=== PATIENT | female | born 1960 | race Caucasian/White ===

== ENCOUNTER 2018-08-19 02:32 | Observation (INO) ==
[2018-08-19] MEDS ORDERED: DILTIAZEM 25 MG/5 ML VIAL IV ONE (02:41)
[2018-08-19] MEDS ORDERED: LACTATED RINGERS 1,000 ML IV ONE ×2 (02:44→04:25)
[2018-08-19] MEDS ORDERED: DILTIAZEM 125 MG in DEXTROSE 5% IN WATER 100 ML IV SCH (02:45)
[2018-08-19 03:47] LABS: Basophils # (Auto) 0.1 K/mcL (0.0-0.3); Basophils % (Auto) 0.8 % (0.0-2.0); Eosinophils # (Auto) 0.2 K/mcL (0.0-0.7); Granulocytes % (Auto) 58.5 % (38.0-78.0); Hematocrit 41.7 % (36.0-48.0); Hemoglobin 13.9 g/dL (12.0-15.0); Lymphocytes # (Auto) 1.7 K/mcL (1.5-4.8); Lymphocytes % (Auto) 27.6 % (15.5-49.0); Mean Cell Volume 88.5 fL (80.0-100.0); Mean Corpuscular HGB Conc 33.4 g/dL (31.0-36.0); Mean Platelet Volume 10.1 fL (7.4-10.4); Monocytes # (Auto) 0.6 K/mcL (0.1-0.9); Monocytes % (Auto) 10.1 % (1.0-12.0); Platelet Count 251 K/mcL (140-440); RBC 4.71 M/mcL (4.00-5.20); Red Cell Distribution Width 13.4 % (11.5-14.5); WBC 6.3 K/mcL (4.5-11.0)
[2018-08-19 04:04] LABS: ALT/SGPT 19 U/l (0-40); AST/SGOT 17 U/l (0-37); Albumin 4.3 gm/dL (3.2-5.2); Albumin/Globulin Ratio 1.5 (1.0-2.3); Alkaline Phosphatase 70 U/L (39-117); Bilirubin,Total 0.2 mg/dL (0.0-1.0); Blood Urea Nitrogen 21 mg/dl (6-20); Calcium 9.6 mg/dl (8.6-10.4); Carbon Dioxide 24 mmol/L (22-30); Chloride 108 mmol/L (96-108); Globulin 2.8 gm/dL (2.2-3.7); Glomerular Filtration Rate 96; Glucose 104 mg/dL (70-105); Potassium 3.8 mmol/L (3.3-5.1); Sodium 146 mmol/L (133-145)
--- NOTE | 2018-08-19 07:57 | Emergency Department Note ---
Arrhythmia/Palpitations HPI - General Chief Complaint: Arrhythmia/Palpitations Stated Complaint: increase in heart rate Time Seen by Provider: 08/19/18 07:47 Source: patient Mode of arrival: ambulatory Limitations: no limitations - History of Present Illness HPI Narrative: This patient noticed during the night that her heart rate was rapid. She has had a history of atrial fibrillation in the past and did have a pig valve replacement at one time. She is not ordinarily in atrial fib. Denies chest pain or shortness of breath. - Related Data Allergies Allergy/AdvReac Type Severity Reaction Status Date / Time No Known Allergies Allergy Verified 08/19/18 02:36 Review of Systems All systems ED: reviewed and negative except as stated. Past Medical History - Past Medical History Medical history: Reports: atrial fibrillation, valvular heart disease - Social History smoking status: Never smoker Physical Exam Limitations: no limitations General appearance: alert Head: atraumatic Eye: Present: normal appearance ENT: normal exam Neck: Present: normal inspection Chest: Present: normal inspection Respiratory: Present: normal lung sounds bilaterally Cardiovascular: Present: tachycardia, irregular rhythm, normal heart sounds Abdominal: Present: soft. Absent: distention, tenderness Neurological: Present: alert Psychiatric: Present: normal affect Skin: Present: warm, dry Course Vital Signs Temperature 97.5 F 08/19/18 02:33 Pulse Rate 154 H 08/19/18 02:33 Respiratory Rate 20 08/19/18 02:33 Blood Pressure 106/96 08/19/18 02:33 Pulse Oximetry (%) 96 08/19/18 02:33 Temperature 97.5 F 08/19/18 02:33 Pulse Rate 65 08/19/18 06:50 Respiratory Rate 30 H 08/19/18 06:50 Blood Pressure 114/74 08/19/18 06:46 Pulse Oximetry (%) 99 08/19/18 06:50 Arrhythmia/Palpitations - [facility] Narrative Medical decision making narrative: Lab work was unremarkable. Initial heart rate was in the 140s. He was titrated with diltiazem both bolus and drip and finally got her heart rate down into the 80s to 90s range. I discussed this case with Dr. Sal and the patient will be admitted to telemetry. - Lab Data Lab results reviewed: Yes I reviewed the patient's lab results. Result diagrams: 08/19/18 02:44 08/19/18 02:44 Lab Results 08/19/18 08/19/18 08/19/18 Range/Units 02:44 02:44 02:44 WBC 6.3 (4.5-11.0) K/mcL RBC 4.71 (4.00-5.20) M/mcL Hgb 13.9 (12.0-15.0) g/dL Hct 41.7 (36.0-48.0) % MCV 88.5 (80.0-100.0) fL MCH 29.6 (26.0-34.0) pg MCHC 33.4 (31.0-36.0) g/dL RDW 13.4 (11.5-14.5) % Plt Count 251 (140-440) K/mcL MPV 10.1 (7.4-10.4) fL Gran % 58.5 (38.0-78.0) % Lymph % (Auto) 27.6 (15.5-49.0) % Liberty % (Auto) 10.1 (1.0-12.0) % Eos % (Auto) 3.0 (0.0-7.0) % Baso % (Auto) 0.8 (0.0-2.0) % Gran # 3.7 (1.8-8.0) K/mcL Lymph # (Auto) 1.7 (1.5-4.8) K/mcL Liberty # (Auto) 0.6 (0.1-0.9) K/mcL Eos # (Auto) 0.2 (0.0-0.7) K/mcL Baso # (Auto) 0.1 (0.0-0.3) K/mcL Sodium 146 H (133-145) mmol/L Potassium 3.8 (3.3-5.1) mmol/L Chloride 108 (96-108) mmol/L Carbon Dioxide 24 (22-30) mmol/L Anion Gap 14.0 (8-16) BUN 21 H (6-20) mg/dl Creatinine 0.7 (0.6-1.1) mg/dl GFR Calculation 96 Glucose 104 (70-105) mg/dL Calcium 9.6 (8.6-10.4) mg/dl Total Bilirubin 0.2 (0.0-1.0) mg/dL AST 17 (0-37) U/l ALT 19 (0-40) U/l Alkaline Phosphatase 70 (39-117) U/L Troponin T < 0.01 (0-0.03) ng/ml Total Protein 7.1 (5.9-8.4) gm/dL Albumin 4.3 (3.2-5.2) gm/dL Globulin 2.8 (2.2-3.7) gm/dL Albumin/Globulin Ratio 1.5 (1.0-2.3) Disposition Pt seen by DIRECT SALES REPRESENTATIVE/PA only: No Clinical Impression: Atrial fibrillation Disposition: Xfer As Outpt/Obs ([facility]) Condition: Good Referrals: Carmen De Luna MD [Primary Care Provider] - Time of Disposition: 08:32
--- NOTE | 2018-08-19 08:50 | XRay Report ---
CLINICAL INFORMATION: afib COMPARISON: 02/20/2010. FINDINGS: Sternotomy changes noted. The heart size, mediastinum and pulmonary vessels are unremarkable. The lungs are clear. There are no effusions. The bones and soft tissues are within normal limits. IMPRESSION: Normal chest. Interpreted and Authenticated by: Javid Banuelos 08/19/18
[2018-08-19] MEDS ORDERED: ONDANSETRON 4 MG/2 ML VIAL IV PRN (09:47)
[2018-08-19] MEDS ORDERED: NALOXONE HCL 0.4 MG/ML VIAL IV PRN (09:47)
[2018-08-19] MEDS ORDERED: ACETAMINOPHEN 325 MG TABLET PO PRN (09:47)
--- NOTE | 2018-08-19 09:48 | Internal Med History&Physical ---
Medical - H&P: HPI Patient information: Note initiated : 08/19/18 at 9:45 am Service Date, if different from initiated Date: [] Patient: Floresita Li a 58 y/o F admitted on for Increase In Heart Rate. Chief Complaint: [] History of present illness: Ms. Li is a 58 year old F with history of bicuspid aortic valve, status post replacement with a porcine valve in 2009 presents to the emergency room today for evaluation of palpitations since approximately 1:45 AM today. She tried to walk this off for nearly an hour and the symptoms persisted she therefore came to the emergency room for further evaluation. The patient notes that she woke up early in the morning and noticed that her heart was racing, she denies any shortness of breath chest pain dizziness sweating fever nausea vomiting or any other acute complaint. The patient does not have history of atrial fibrillation, however in the postop. After her valve replacement she did have an episode of atrial fibrillation with RVR so she was aware of what was happening. The patient was prescribed metoprolol at the time of discharge after her valve replacement surgery. The patient stopped taking this medication as her heart rate was doing well. The patient denies any history of diabetes heart attack heart failure stroke or transient ischemic attack. In the emergency room the patient labs were unremarkable, troponin neg, tsh 1.06, mg 1.9 Pt was given cardizem bolus, and place on cardizem drip and is being admitted to the hospital for further management. All systems: reviewed and no additional remarkable complaints except as stated (as per HPI rest neg) Medical - H&P: PMH Medical history: bicuspid aortic vavle, s/p porcine valve coarction of aorta congenital Hypothyroidism Surgical history: aortic valve sx, 2010 knee sx Pertinent family history: mothers side grad parents from cardiac issues mother has cardiac stents Father hld, htn Medical - H&P: Meds Home Medications Medication Instructions Recorded Confirmed Type Levothyroxine [Synthroid] 150 mcg PO DAILY 08/19/18 08/19/18 History Allergies Allergy/AdvReac Type Severity Reaction Status Date / Time No Known Allergies Allergy Verified 08/19/18 02:36 Medical - H&P: Exam - Constitutional Vitals: Temp Pulse Resp BP Pulse Ox 97.5 F 91 H 18 119/78 96 08/19/18 09:29 08/19/18 09:29 08/19/18 09:35 08/19/18 09:29 08/19/18 09:29 Exam: GENERAL: The patient is a well-developed, well-nourished in no apparent distress. Is alert and oriented x3. VITAL SIGNS: Reviewed and as noted elsewhere. HEENT: Head is normocephalic and atraumatic. Extraocular muscles are intact. Pupils are equal, round, and reactive to light. Nares appeared normal. Mouth appears any without lesions. Mucous membranes are moist. NECK: Normal to inspection, Supple, No lymphadenopathy or thyromegaly. LUNGS: Air entry equal on both sides, no wheezing, crackles or rhonchi noted. No accessory muscles of respiration HEART: Rate tachycardic, irregular rhythm, S1 and S2 heard, no Gallop, S3 or Rub Noted, systolic mumrur, aortic region 4/6 ABDOMEN: Soft, nontender, and nondistended. Positive bowel sounds. No hepatosplenomegaly was noted. EXTREMITIES: No cyanosis, clubbing, rash, lesions or edema. NEUROLOGIC: Cranial nerves II through XII are grossly intact. Motor and Sensory System Grossly Intact PSYCHIATRIC: Normal affect, Normal Mood. Appropriate Behavior. SKIN: No ulceration or wounds noted, No jaundice, No rash noted. Medical - H&P: Reslt - Labs CBC & Chem 7: 08/19/18 02:44 08/19/18 02:44 Labs: Short CBC 08/19/18 Range/Units 02:44 WBC 6.3 (4.5-11.0) K/mcL Hgb 13.9 (12.0-15.0) g/dL Hct 41.7 (36.0-48.0) % Plt Count 251 (140-440) K/mcL BMP 08/19/18 02:44 Sodium 146 H Potassium 3.8 Chloride 108 Carbon Dioxide 24 BUN 21 H Creatinine 0.7 Glucose 104 Calcium 9.6 Cardiac Enzymes 08/19/18 Range/Units 02:44 Troponin T < 0.01 (0-0.03) ng/ml Liver Function 08/19/18 Range/Units 02:44 Total Bilirubin 0.2 (0.0-1.0) mg/dL AST 17 (0-37) U/l ALT 19 (0-40) U/l Alkaline Phosphatase 70 (39-117) U/L Albumin 4.3 (3.2-5.2) gm/dL Medical - H&P: A/P - Narrative A/P Narrative: A/P Atrial fibrillation with RVR -IV cardizem drip to continue -last echo was 2 yrs ago, repeat Echo -start on po metoprolol and wean off the drip Hypothyroidism -tsh wnl -continue home dose of levothyroxine DVT hep sq full code
[2018-08-19] MEDS: 0.9 % SODIUM CHLORIDE 250 ML IV SCH (10:00)
[2018-08-19] MEDS: METOPROLOL SUCCINATE 50 MG TAB.XL.24H PO SCH (10:09)
[2018-08-19] MEDS: DILTIAZEM 125 MG in DEXTROSE 5% IN WATER 100 ML IV SCH (15:44)
[2018-08-19] MEDS: 0.9 % SODIUM CHLORIDE 10 ML SYRINGE IV SCH ×2 (15:44→20:29)
[2018-08-19] MEDS: METOPROLOL TARTRATE 5 MG/5 ML VIAL IV PRN ×2 (16:21→20:29)
[2018-08-19] MEDS: HEPARIN 5,000 UNIT/ML VIAL SQ SCH (20:29)
[2018-08-20] MEDS: 0.9 % SODIUM CHLORIDE 250 ML IV SCH (01:47)
[2018-08-20] MEDS: DILTIAZEM 125 MG in DEXTROSE 5% IN WATER 100 ML IV SCH (03:30)
[2018-08-20] MEDS: 0.9 % SODIUM CHLORIDE 10 ML SYRINGE IV SCH (05:38)
[2018-08-20] MEDS ORDERED: DIGOXIN 500 MCG/2 ML AMPUL IV ONE (06:59)
[2018-08-20 08:16] LABS: ALT/SGPT 15 U/l (0-40); AST/SGOT 15 U/l (0-37); Albumin 4.1 gm/dL (3.2-5.2); Albumin/Globulin Ratio 1.5 (1.0-2.3); Alkaline Phosphatase 59 U/L (39-117); Bilirubin,Direct < 0.2 mg/dL (0.0-0.3); Bilirubin,Total 0.4 mg/dL (0.0-1.0); Blood Urea Nitrogen 10 mg/dl (6-20); Calcium 9.5 mg/dl (8.6-10.4); Carbon Dioxide 24 mmol/L (22-30); Chloride 105 mmol/L (96-108); Globulin 2.8 gm/dL (2.2-3.7); Glomerular Filtration Rate 96; Glucose 113 mg/dL (70-105); Lactate Dehydrogenase 198 U/L (94-250); Magnesium 1.9 mg/dL (1.6-2.5); Phosphorous 3.2 mg/dL (2.7-4.5); Potassium 4.1 mmol/L (3.3-5.1); Sodium 139 mmol/L (133-145); Triglycerides 122 mg/dl (<150); Uric Acid 3.3 mg/dL (2.5-8.0)
[2018-08-20] MEDS ORDERED: LEVOTHYROXINE 150 MCG TABLET PO SCH (08:19)
[2018-08-20] MEDS: METOPROLOL SUCCINATE 50 MG TAB.XL.24H PO SCH (08:29)
[2018-08-20] MEDS: HEPARIN 5,000 UNIT/ML VIAL SQ SCH (09:59)
--- NOTE | 2018-08-20 11:11 | Discharge Summary ---
Medical - DS: Prov Patient information: Note initiated : 08/20/18 at 11:08 am Service Date, if different from initiated Date: [] Patient: Floresita Li 58 y/o F admitted on 08/19/18 for Increase In Heart Rate. Chief Complaint: [] Date of admission: 08/19/18 09:48 Discharge date: 08/20/18 Primary care physician: Carmen De Luna Consults: 08/19/18 08:27 Consult to Physician [CONS] Stat Comment: Consulting Provider: Mary Anne Sal Reason For Exam: Physician to Consult Discharging clinician: Mary Anne Sal Medical - DS: Meds - Discharge Medications Prescriptions: Metoprolol Succinate [Toprol Xl] 50 mg PO DAILY #30 tab.xl.24h Active and Home Medications: Home Medications Levothyroxine [Synthroid] 150 mcg PO DAILY 08/19/18 [History Confirmed 08/19/18 Last Taken 08/18/18] Medical - DS: Hosp Hospital course: Ms. Li is a 58 year old F with history of bicuspid aortic valve, status post replacement with a porcine valve in 2009 presents to the emergency room today for evaluation of palpitations since approximately 1:45 AM today. She tried to walk this off for nearly an hour and the symptoms persisted she therefore came to the emergency room for further evaluation. The patient notes that she woke up early in the morning and noticed that her heart was racing, she denies any shortness of breath chest pain dizziness sweating fever nausea vomiting or any other acute complaint. The patient does not have history of atrial fibrillation, however in the postop. After her valve replacement she did have an episode of atrial fibrillation with RVR so she was aware of what was happening. The patient was prescribed metoprolol at the time of discharge after her valve replacement surgery. The patient stopped taking this medication as her heart rate was doing well. The patient denies any history of diabetes heart attack heart failure stroke or transient ischemic attack. In the emergency room the patient labs were unremarkable, troponin neg, tsh 1.06, mg 1.9 Pt was given cardizem bolus, and place on cardizem drip and is being admitted to the hospital for further management. The patient was monitored overnight, the patient was in atrial flutter, and intermittently was on Aflutter/afib with RVR She got one dose of digoxin 500mcg in the morning, and she spontaneously converted back to sinus rhythm. The patient has remained in sinus rhythm and feels good, Echo done shows normal lv function, mild lvh, aortic valve peak gradient 30mmhg, mean gradient 15mmhg Patient advised to take ASA 81 with food, Major risks benefits of the medication discussed, all questions answered. including risk for bleeding and jany She will be discharged home on po metoprolol and advised to follow up with her tv technician for further evaluation. Discharge diagnosis: atrial flutter with rvr - Time Spent with Patient Total time spent providing and/or coordinating discharge services: Greater than 30 minutes Medical - DS: Exam - Constitutional Vitals: Vital Signs Temp Resp BP Pulse Ox 08/20/18 08:02 104/67 08/20/18 07:16 97.6 F 18 101/72 97 08/20/18 00:01 97.9 F 16 95/72 95 08/19/18 22:01 98/70 08/19/18 21:01 103/78 08/19/18 20:57 95/79 08/19/18 20:01 98.9 F 16 109/73 98 08/19/18 19:02 92/75 08/19/18 18:06 82/69 08/19/18 17:01 104/74 08/19/18 16:43 98.4 F 18 96/81 98 08/19/18 16:01 103/69 08/19/18 15:49 97 08/19/18 15:02 95 08/19/18 14:01 106/81 96 08/19/18 13:16 100/77 96 08/19/18 13:03 100/77 97 08/19/18 12:32 91/58 98 08/19/18 12:02 98.2 F 18 106/68 95 08/19/18 11:38 110/75 95 Intake and Output 08/19/18 08/20/18 08/20/18 21:59 05:59 13:59 Intake Total 620 486 240 Output Total 1075 450 150 Balance -455 36 90 Intake: IV 250 Sodium Chloride 0.9% 250 ml @ 250 20 mls/hr IV .[id number] [facility] Rx#: [id number] Oral 620 236 240 Output: Void Amount 1075 450 150 # of times incontinent of urine 0 Other: Meal Dinner Peanutbutter sandwich Breakfast Percent of Meal Consumed 100% 100% 100% Feeding Ability Independent Urine Appearance Clear Clear Clear Urine Color Pale Bright Yellow Bright Yellow Urine Odor Normal Normal # Voids 0 Weight 211 lb 3.2 oz Additional comments: Constitutional; Afebrile, cooperative, alert, not in distress. Eyes- No icterus, , No periorbital swelling Ears- Ext ear normal, hearing normal to conversation. Neck- Midline trachea, supple Respiratory system: Air Entry equal on both sides, No crackles or wheezing, no rhonchi. CVS- Rate rhythm regular, S1,S2 heard, no gallop, no rub. Abdomen- Soft nontender abdomen, no organomegaly, no tenderness, no guarding or rigidity, CHROMOSOMAL DISORDERS COUNSELOR- AOOx3, moving all extremities, no gross focal deficit noted. Medical - DS: Data Labs on day of discharge: Labs from last 24 hours 08/20/18 07:13 Sodium 139 Potassium 4.1 Chloride 105 Carbon Dioxide 24 Anion Gap 10.0 BUN 10 Creatinine 0.7 GFR Calculation 96 Glucose 113 H Uric Acid 3.3 Calcium 9.5 Phosphorus 3.2 Magnesium 1.9 Total Bilirubin 0.4 Direct Bilirubin < 0.2 GGT 11 AST 15 ALT 15 Alkaline Phosphatase 59 Lactate Dehydrogenase 198 Total Protein 6.9 Albumin 4.1 Globulin 2.8 Albumin/Globulin Ratio 1.5 Triglycerides 122 Medical - DS: A/P - Patient/Caregiver Discharge Instructions Activity: increase activity as tolerated Diet: Regular Diet Additional Instructions: take metoprolol once daily, if you get dizzy please check your blood pressure, if low (less than 100 systolic) cut the dose in half (25mg daily) follow up with your tv technician in 1-2 weeks to see if any further intervention is needed Take asa 81 once daily, take medication with food, this is to prevent risk of CVA, if you notice blood in stool, black stools, please stop medication and talk to your doctor. Aspirin will increase your risk of bruising and bleeding. Avoid taking NSAIDS with this medication. Go to the ER if blood in stools, chest pain, fever or any other acute concern. Prescriptions: Metoprolol Succinate [Toprol Xl] 50 mg PO DAILY #30 tab.xl.24h - Follow up Plan Follow up with: Carmen De Luna MD [Primary Care Provider] - 09/02/18 11:30 am Disposition: Home, Self-Care Prognosis: Good Rehab Potential: Good I certify that the patient requires SNF services: No Overall status at discharge: patient is back to baseline Medical - DS: Qual - VTE Deep Vein Thrombosis/Pulmonary Embolism Present on Admission: No
== END 2018-08-20 12:04 | disposition home or self-care (01) ==
LOC: ICU 02:32 → ED 02:32 → ICU 10:00
PROVIDERS: ADMIT Internal Medicine; ATTEND Internal Medicine